=== PATIENT | male | born 1995 | race Two or more races ===

== ENCOUNTER 2024-10-10 07:36 | Inpatient (IN) | payer OTHER, SELFPAY ==
[~2024-10-10] VITALS: Ht 177.8 cm; Wt 92.4 kg
--- NOTE | 2024-10-10 07:58 | ED.PDOC ---
GI ASSESSMENT HPI Comments 29 year old male presents to the ED with chief complaint of abdominal pain. Patient reports that he has been experiencing LLQ abdominal pain with associated nausea since an hour ago. Patient relays that he has been on a recent 2 week course of antibiotics due to a sinus infection, but did not take a dose last night. Patient denies any dysuria, constipation, vomiting, diarrhea, fever, or chills. Chief Complaint: Abdominal Pain Time Seen by MD: 07:56 Reviewed Notes: Nurses Notes, Medications, Allergies Allergies: Coded Allergies: NO KNOWN ALLERGIES (Unverified , 10/10/24) Home Meds Active Scripts Pantoprazole Sodium Sesquihydr (Protonix) 40 Mg Tab, 40 MG PO DAILY for 5 Days, #5 TAB Prov:NAHOMI MARTÍNEZ MD 10/10/24 Information Source: Patient Mode of Arrival: Ambulatory Timing: Hours Duration: Since onset Prehospital treatment: None Quality: Sharp Vomitus: None Stool: Normal Severity: Moderate Recent: None Recent Hx of: None Pain Location: LLQ Modifying Factors: Nothing Associated sign and symptoms: Nausea, Abdominal Pain Past Medical History PAST MEDICAL HISTORY: Denies Surgical History: Denies all surgeries Family History Family History: Reviewed,noncontributory to illness Social History Smoker: Non-Smoker Alcohol: Denies ETOH Use Drugs: Denies Drug Use Lives In: Home Constitutional: denies: chills, diaphoresis, fatigue, fever, malaise, sweats, weakness, others EENTM: denies: blurred vision, double vision, ear bleeding, ear discharge, ear drainage, ear pain, ear ringing, eye pain, eye redness, hearing loss, mouth pain, mouth swelling, nasal discharge, nose bleeding, nose congestion, nose pain, photophobia, tearing, throat pain, throat swelling, voice changes, others Respiratory: denies: cough, hemoptysis, orthopnea, SOB at rest, shortness of breath, SOB with excertion, stridor, wheezing, others Cardiovascular: denies: chest pain, dizzy spells, diaphoresis, Dyspnea on exertion, edema, irregular heart beat, left arm pain, lightheadedness, palpitations, PND, syncope, others Gastrointestinal: reports: abdominal pain, nausea; denies: abdomen distended, blood streaked bowels, constipated, diarrhea, dysphagia, difficulty swallowing, hematemesis, melena, poor appetite, poor fluid intake, rectal bleeding, rectal pain, vomiting, others Genitourinary: denies: burning, dysuria, flank pain, frequency, hematuria, incontinence, penile discharge, penile sore, pain, testicle pain, testicle swelling, urgency, others Neurological: denies: dizziness, fainting, headache, left sided numbness, left sided weakness, numbness, paresthesia, pre-existing deficit, right sided numbnes s, right sided weakness, seizure, speech problems, tingling, tremors, weakness, others Musculoskeletal: denies: back pain, gout, joint pain, joint swelling, muscle pain, muscle stiffness, neck pain, others Integumetry: denies: bruises, change in color, change in hair/nails, dryness, laceration, lesions, lumps, rash, wounds, others Allergic/Immunocompromised: denies: Difficulty Healing, Frequent Infections, Hives, Itching, others Hematologic/Lymphatic: denies: anemia, blood clots, easy bleeding, easy bruising, swollen glands, others Endocrine: denies: excessive hunger, excessive sweating, excessive thirst, excessive urination, flushing, intolerance to cold, intolerance to heat, unexplained weight gain, unexplained weight loss, others Psychiatric: denies: anxiety, bipolar disorder, depression, hopeless, panic disorder, schizophrenia, sleepless, suicidal, others All Other Systems: Reviewed and Negative Physical Exam General Appearance: Moderate Distress, Normal HEENT: Normal ENT Inspection, PERRL/EOMI Neck: Full Range of Motion, Non-Tender, Normal, Normal Inspection Respiratory: Chest Non-Tender, Lungs Clear, No Accessory Muscle Use, No Re spiratory Distress, Normal Breath Sounds Cardiovascular: No Edema, No JVD, No Murmur, No Gallop, Normal Peripheral Pulses, Regular Rate/Rhythm Breast Exam: Deferred Gastrointestinal: No Organomegaly, Non Tender, No Pulsatile Mass, Normal Bowel Sounds, Soft Genitalia: Deferred Pelvic: Deferred Rectal: Deferred Extremities: No calf tenderness, Normal capillary refill, Normal inspection, Normal range of motion, Non-tender, No pedal edema Musculoskeletal : Apperance: Normal Neurologic: Alert, tool inspector II-XII nml as Tested, No Motor Deficits, Normal Affect, Normal Mood, No Sensory Deficits Cerebellar Function: Normal Reflexes: Normal Skin: Dry, Normal Color, Warm Peripheral Pulses: 3+ Radial (R), 3+ Radial (L) Lymphatic: No Adenopathy Was a procedure done? Was a procedure done?: No GI differential Dx Differential Diagnosis: Constipation, Diverticular disease, Esophagitis, Gastritis/PUD, Gastroenteritis X-Ray, Labs, Meds, VS Vital Signs Date Time Temp Pulse Resp B/P (MAP) Pulse Ox O2 Delivery O2 Flow Rate FiO2 10/10/24 12:46 98.7 79 16 126/76 (93) 97 98.7 10/10/24 10:04 98.3 71 18 119/69 (86) 98 98.3 10/10/24 07:43 97.3 74 20 138/87 (104) 98 Lab Test 10/10/24 09:41 Range/Units White Blood Count 12.4 H 4.4-10.8 10^3/uL Red Blood Count 5.10 4.5-5.90 10^6/uL Hemoglobin 14.7 13.5-17.5 g/dL Hematocrit 43.9 41.0-53.0 % Mean Corpuscular Volume 86.0 80.0-100.0 fL Mean Corpuscular Hemoglobin 28.8 28.0-32.0 pg Mean Corpuscular Hemoglobin Concent 33.5 32.0-36.0 g/dL Red Cell Distribution Width 13.2 11.8-14.3 % Platelet Count 269 140-450 10^3/uL Mean Platelet Volume 8.3 6.9-10.8 fL Neutrophils (%) (Auto) 81.8 H 37.0-80.0 % Lymphocytes (%) (Auto) 11.7 10.0-50.0 % Monocytes (%) (Auto) 6.0 0.0-12.0 % Eosinophils (%) (Auto) 0.4 0.0-7.0 % Basophils (%) (Auto) 0.1 0.0-2.0 % Neutrophils # (Auto) 10.2 H 1.6-8.6 10 ^3/uL Lymphocytes # (Auto) 1.5 0.4-5.4 10 ^3/uL Monocytes # (Auto) 0.7 0-1.3 10 ^3/uL Eosinophils # (Auto) 0 0-0.8 10 ^3/uL Basophils # (Auto) 0 0-0.2 10 ^3/uL Nucleated Red Blood Cells 0.0 % Sodium Level 139 136-145 mmol/L Potassium Level 4.4 3.5-5.1 mmol/L Chloride Level 105 98-107 mmol/L Carbon Dioxide Level 29 20-31 mmol/L Anion Gap 5 5-15 Blood Urea Nitrogen 15 9-23 mg/dL Creatinine 1.01 0.700-1.30 mg/dL Glomerular Filtration Rate Calc 105 >90 mL/min BUN/Creatinine Ratio 14.9 10.0-20.0 Serum Glucose 104 74-106 mg/dL Calcium Level 9.8 8.7-10.4 mg/dL Troponin I High Sensitivity < 3 L </=54 ng/L Triglycerides Level 140 < 150 mg/dL Cholesterol Level 167 < 200 mg/dL LDL Cholesterol 116 H < 100 mg/dL HDL Cholesterol 44 40-59 mg/dL Lipase 37 12-53 U/L Thyroid Stimulating Hormone (TSH) 2.07 0.55-4.78 uIU/mL Patient alert. Complaining of abdominal discomfort. Vitals stable. Answering all questions. Ambulating. Abdomen is soft nontender. Physical examination pristine. Jumping up and down without difficulty. Currently on antibiotics for possible sinusitis. Was given prescription of Protonix. Explained to the patient the side effects of antibiotics. Was told to follow up with his primary care physician. Was told to come back if there is any problem. Time of 1ST Reevaluation: 08:56 Reevaluation 1ST: Improved Patient Education/Counseling: Diagnosis, Treatment Family Education/Counseling: No Family Present Additional Information I reviewed the following notes from patient's past medical encounters: None The following tests were ordered, and results were reviewed by me: CBC, BMP, UA Additional Information was gathered from interviewing the following independent historians: None I reviewed and agreed with the following test results read by other providers: None I discussed treatment and results with medical personnel. Departure 1 Departure Time of Disposition: 08:01 Impression: Primary Impression: Gastritis Qualified Codes: K29.00 - Acute gastritis without bleeding Additional Impression: Non-specific colitis Disposition: ADMITTED INPATIENT Admit to: Med Surg Condition: Guarded e-Prescriptions Pantoprazole Sodium Sesquihydr (Protonix) 40 Mg Tab 40 MG PO DAILY for 5 Days, #5 TAB Prov: NAHOMI MARTÍNEZ MD 10/10/24 Critical Care Note Critical Care Time?: No Stability Stability form required: No Heart Score Heart Score: Heart Score Response (Comments) Value History N/A 0 EKG N/A 0 Age N/A 0 Risk Factors N/A 0 Troponin N/A 0 Total 0 I personally scribed for NAHOMI MARTÍNEZ MD ([email or web address]) on 10/10/24 at 07:58. Electronically submitted by Milo Springer [email or web address]). NAHOMI MARTÍNEZ MD Oct 10, 2024 07:58
[2024-10-10] MEDS ORDERED: PANT40TA2 PO (08:02)
[2024-10-10 10:12] LABS: Basophils # (auto) 0 10 ^3/uL (0-0.2); Basophils % (auto) 0.1 % (0.0-2.0); Eosinophils # (auto) 0 10 ^3/uL (0-0.8); Eosinophils % (auto) 0.4 % (0.0-7.0); Hematocrit 43.9 % (41.0-53.0); Hemoglobin 14.7 g/dL (13.5-17.5); Lymphocytes # (auto) 1.5 10 ^3/uL (0.4-5.4); Lymphocytes % (auto) 11.7 % (10.0-50.0); Mean Corpuscular Hemoglobin 28.8 pg (28.0-32.0); Mean Corpuscular Hgb Conc. 33.5 g/dL (32.0-36.0); Monocytes # (auto) 0.7 10 ^3/uL (0-1.3); Neutrophils # (auto) 10.2 10 ^3/uL (1.6-8.6); Neutrophils % (auto) 81.8 % (37.0-80.0); Platelet Count (auto) 269 10^3/uL (140-450); Red Cell Distribution Width 13.2 % (11.8-14.3); White Blood Cell 12.4 10^3/uL (4.4-10.8)
[2024-10-10 10:24] LABS: Chloride 105 mmol/L (98-107); Potassium 4.4 mmol/L (3.5-5.1); Sodium 139 mmol/L (136-145)
[2024-10-10 10:25] LABS: Anion Gap 5 (5-15); Calcium 9.8 mg/dL (8.7-10.4); Carbon Dioxide 29 mmol/L (20-31)
[2024-10-10 10:30] LABS: Blood Urea Nitrogen 15 mg/dL (9-23); Glucose 104 mg/dL (74-106)
[2024-10-10 10:38] LABS: BUN/Creatinine Ratio 14.9 (10.0-20.0)
[2024-10-10 10:53] LABS: Lipase 37 U/L (12-53)
--- NOTE | 2024-10-10 11:05 | DVH ---
CT ABDOMEN AND PELVIS WITHOUT CONTRAST CLINICAL HISTORY: enteritis TECHNIQUE: Multiple contiguous axial images of the abdomen and pelvis without intravenous contrast. The images were reformatted degenerate coronal and sagittal reconstructions. All CT scans at this medical facility are performed using dose modulation techniques as appropriate t o a performed exam including the following:Automated exposure control was utilized; adjustment of the MA and/or KV according to patient size; and use of iterative reconstruction technique. Radiation Dose Information: CT Dose: CTDI volume is 9.7 mGy. Dose-length product is 548 mGy*cm Comparison: None FINDINGS: Evaluation of the abdomen and pelvis is limited without intravenous contrast. The liver, gallbladder, pancreas, kidneys, adrenal glands, and spleen appear within normal limits. There is no gross evidence of abdominal lymphadenopathy. There is no free fluid or free air. The stomach grossly appears unremarkable. The small and large bowel loops demonstrate normal caliber . There are few scattered diverticula in the colon without evidence of acute diverticulitis. There i s a normal-appearing appendix seen in the right lower quadrant abdomen without associated inflammator y changes. The abdominal aorta and IVC appear within normal limits. The bladder appears unremarkable for the degree of distention. Pelvic organ appears within normal neff its. There is no gross evidence of a pelvic mass. There is no free fluid collection. Lung bases are clear. There is no acute osseous abnormality. IMPRESSION: 1. There is no acute process in the abdomen and pelvis. 2. Few scattered colonic diverticula. HS:Y
--- NOTE | 2024-10-10 12:47 | DVHHP2 ---
History of Present Illness Reason for Visit: Abdominal pain and palpitations History of Present Illness Nikhil Sawyer is a 29-year-old male with no pertinent past medical history who presents to the ED with nausea, abdominal pain x1 day and palpitations since Tuesday. Patient reports that he tried marijuana and immediately started developing palpitations. He states he abdominal pain is 6/10 intermittent and pressure-like. Patient also reports some head pressure. Patient denies any recent injury of trauma or falls. Patient reports that there are no triggering or alleviating factors. He also reports that he had a sinus infection recently as well and was given antibiotics. Patient denies any shortness of breath, vomiting, diarrhea, lightheadedness, fever, chills, and dizziness. Smoke: No ALCOHOL: none Drugs: Marijuana Lives: with Family Domestic Violence: Neg Review of Systems Constitutional: No: Fever, Chills, Sweats, Weakness, Malaise, Other Eyes: No: Pain, Vision change, Conjunctivae inflammation, Eyelid inflammation, Other, Redness ENT: No: Ear pain, Ear discharge, Nose pain, Nose discharge, Nose congestion, Mouth pain, Mouth swelling, Throat pain, Throat swelling, Other Respiratory: No: Cough, Dry, Shortness of breath, SOB with excertion, Wheezing, Hemoptysis, Pleuritic Pain, Sputum, Wheezing, Other Cardiovascular: Palpitations; No: Chest Pain, Orthopnea, Paroxysmal Noc. Dyspnea, Edema, Lt Headedness, Other Gastrointestinal: Nausea, Abdominal Pain; No: Vomiting, Diarrhea, Constipation, Melena, Hematochezia, Other Genitourinary: No Dysuria, No Frequency, No Incontinence, No Hematuria, No Retention, No Other Musculoskeletal: No: other, neck pain, shoulder pain, arm pain, back pain, hand pain, leg pain, foot pain Skin: No: Rash, Lesions, Jaundice, Bruising, Other Neurological: No: Weakness, Numbness, Incoordination, Change in speech, Confusion, Seizures, Other Allergies: Coded Allergies: NO KNOWN ALLERGIES (Unverified , 10/10/24) Exam Vital Signs Vital Signs Date Time Temp Pulse Resp B/P (MAP) Pulse Ox O2 Delivery O2 Flow Rate FiO2 10/10/24 10:04 98.3 71 18 119/69 (86) 98 98.3 General Appearance: Alert, Oriented X3, Cooperative, No acute distress HEENT: Atraumatic, PERRLA, EOMI, Mucous membr. moist/pink Respiratory: Clear to auscultation, Normal air movement Cardiovascular: Regular rate, Normal S1, Normal S2, No murmurs Abdominal: Normal bowel sounds, Soft, No masses Extremities: No clubbing, No cyanosis, No edema, Normal pulses, No tenderness/swelling Skin: No rashes, No breakdown, No significant lesion Neuro: Normal gait, Normal speech, Strength at 5/5 X4 ext, Normal tone, Sensation intact Psych/Mental Status: Mental status NL, Mood NL Labs/Xrays Labs Test 10/10/24 09:41 Range/Units White Blood Count 12.4 H 4.4-10.8 10^3/uL Red Blood Count 5.10 4.5-5.90 10^6/uL Hemoglobin 14.7 13.5-17.5 g/dL Hematocrit 43.9 41.0-53.0 % Mean Corpuscular Volume 86.0 80.0-100.0 fL Mean Corpuscular Hemoglobin 28.8 28.0-32.0 pg Mean Corpuscular Hemoglobin Concent 33.5 32.0-36.0 g/dL Red Cell Distribution Width 13.2 11.8-14.3 % Platelet Count 269 140-450 10^3/uL Mean Platelet Volume 8.3 6.9-10.8 fL Neutrophils (%) (Auto) 81.8 H 37.0-80.0 % Lymphocytes (%) (Auto) 11.7 10.0-50.0 % Monocytes (%) (Auto) 6.0 0.0-12.0 % Eosinophils (%) (Auto) 0.4 0.0-7.0 % Basophils (%) (Auto) 0.1 0.0-2.0 % Neutrophils # (Auto) 10.2 H 1.6-8.6 10 ^3/uL Lymphocytes # (Auto) 1.5 0.4-5.4 10 ^3/uL Monocytes # (Auto) 0.7 0-1.3 10 ^3/uL Eosinophils # (Auto) 0 0-0.8 10 ^3/uL Basophils # (Auto) 0 0-0.2 10 ^3/uL Nucleated Red Blood Cells 0.0 % Sodium Level 139 136-145 mmol/L Potassium Level 4.4 3.5-5.1 mmol/L Chloride Level 105 98-107 mmol/L Carbon Dioxide Level 29 20-31 mmol/L Anion Gap 5 5-15 Blood Urea Nitrogen 15 9-23 mg/dL Creatinine 1.01 0.700-1.30 mg/dL Glomerular Filtration Rate Calc 105 >90 mL/min BUN/Creatinine Ratio 14.9 10.0-20.0 Serum Glucose 104 74-106 mg/dL Calcium Level 9.8 8.7-10.4 mg/dL Lipase 37 12-53 U/L CT ABDOMEN AND PELVIS WITHOUT CONTRAST CLINICAL HISTORY: enteritis TECHNIQUE: Multiple contiguous axial images of the abdomen and pelvis without intravenous contrast. The images were reformatted degenerate coronal and sagittal reconstructions. All CT scans at this medical facility are performed using dose modulation techniques as appropriate to a performed exam including the following:Automated exposure control was utilized; adjustment of the MA and/or KV according to patient size; and use of iterative reconstruction technique. Radiation Dose Information: CT Dose: CTDI volume is 9.7 mGy. Dose-length product is 548 mGy*cm Comparison: None FINDINGS: Evaluation of the abdomen and pelvis is limited without intravenous contrast. The liver, gallbladder, pancreas, kidneys, adrenal glands, and spleen appear within normal limits. There is no gross evidence of abdominal lymphadenopathy. There is no free fluid or free air. The stomach grossly appears unremarkable. The small and large bowel loops demonstrate normal caliber. There are few scattered diverticula in the colon without evidence of acute diverticulitis. There is a normal-appearing appendix seen in the right lower quadrant abdomen without associated inflammatory changes. The abdominal aorta and IVC appear within normal limits. The bladder appears unremarkable for the degree of distention. Pelvic organ appears within normal limits. There is no gross evidence of a pelvic mass. There is no free fluid collection. Lung bases are clear. There is no acute osseous abnormality. IMPRESSION: 1. There is no acute process in the abdomen and pelvis. 2. Few scattered colonic diverticula. Assessment/Plan Assessment/Plan Assessment/Plan: Palpitations Leukocytosis CT abdomen and pelvis Lipase EKG Troponin UDS UA His chest x-ray Influenza swab COVID swab Protonix Aspirin Statin VJ TSH Labs A.m. labs Lipid panel IV antibiotics-ceftriaxone Substance abuse Counseled patient on cessation of substance abuse FEN/PPX Diet Hep-Lock DVT ppx - not indicated patient ambulating PUD prophylaxis-Protonix, continue home medication Discussed plan of care with patient and nurse Home medications reconciled Admit to tele Plan discussed with: Patient My Orders Orders - ENRIQUETA BROWN Procedure Category Date Status Time Electrocardigram EKG 10/10/24 Transmitted 12:24 Troponin-I Hs LAB 10/10/24 Transmitted 12:24 Troponin-I Hs LAB 10/10/24 Transmitted 13:24 Troponin-I Hs LAB 10/10/24 Transmitted 15:24 Drug Screen LAB 10/10/24 Transmitted 12:24 Urine Dip ED NURSING 10/10/24 Transmitted Chest Xray 1 View XY 10/10/24 Transmitted 12:24 Covid19 Antigen [facility] 10/10/24 Transmitted Rapid Influenza A&B LAB 10/10/24 Transmitted 12:24 Pantoprazole Tablet PHA 10/11/24 Transmitted (Protonix Tablet) 10:00 Date of Service: Oct 10, 2024 Billing Provider: ENRIQUETA BROWN Common Visit Codes: [id number] INP/OBS CARE (HIGH) ENRIQUETA BROWN Oct 10, 2024 12:47
[2024-10-10] MEDS ORDERED: MORPHINE SULFATE 4 MG/ML SYR/VIAL IV PRN (13:00)
[2024-10-10] MEDS ORDERED: MORPHINE SULFATE INJ 2 MG/ml SYRG IV PRN (13:00)
[2024-10-10] MEDS ORDERED: ONDANSETRON HCL 4 MG/2 ML VIAL IV PRN (13:00)
[2024-10-10] MEDS ORDERED: NITROGLYCERIN 0.4 MG SL TAB SL PRN ×2 (13:00)
--- NOTE | 2024-10-10 13:00 | DVH ---
EXAM: XY CHEST XRAY 1 VIEW Indication: palpitations Technique: Single frontal view of the chest was obtained Comparison: None FINDINGS: Lines and Tubes: None Lungs: No focal consolidation. Pleura: No effusion. No pneumothorax. Cardiomediastinal contours: Unremarkable Bones: No acute osseous abnormality. IMPRESSION: No acute cardiopulmonary disease.
[2024-10-10 13:38] LABS: Triglycerides 140 mg/dL (< 150)
[2024-10-10 13:40] LABS: Cholesterol 167 mg/dL (< 200); HDL Cholesterol 44 mg/dL (40-59); LDL Cholesterol 116 mg/dL (< 100)
[2024-10-10 13:57] VITALS: PULSE 77; RESP 20; O2SAT 96
[2024-10-10] MEDS: cefTRIAXone 1GM/50ML D5W 50 ML IV ONE (14:25)
[2024-10-10 18:41] LABS: COVID19 ANTIGEN SOFIA FIA NEGATIVE (NEGATIVE); Rapid Influenza A Negative (Negative)
[2024-10-10 18:42] LABS: Rapid Influenza B Positive (Negative)
[2024-10-10] MEDS: ACETAMINOPHEN 325 MG TAB PO PRN (22:26)
[2024-10-10] MEDS: ATORVASTATIN 20 MG TAB PO SCH (22:26)
[2024-10-11 02:02] LABS: Amphetamine Screen, Urine Neg (NEGATIVE); Barbiturate Scree,Urine Neg (NEGATIVE); Benzodiazephine Screen, Urine Neg (NEGATIVE); Cannabinoid Screen, Urine Neg (NEGATIVE); Cocaine Screen, Urine Neg (NEGATIVE); Opiate Scree,Urine Neg (NEGATIVE); Phencyclidine Screen, Urine Neg (NEGATIVE)
[2024-10-11 06:03] LABS: Basophils # (auto) 0 10 ^3/uL (0-0.2); Basophils % (auto) 0.2 % (0.0-2.0); Eosinophils # (auto) 0.1 10 ^3/uL (0-0.8); Eosinophils % (auto) 1.9 % (0.0-7.0); Hematocrit 42.4 % (41.0-53.0); Hemoglobin 14.6 g/dL (13.5-17.5); Lymphocytes # (auto) 2.1 10 ^3/uL (0.4-5.4); Lymphocytes % (auto) 27.3 % (10.0-50.0); Mean Corpuscular Hemoglobin 29.5 pg (28.0-32.0); Mean Corpuscular Hgb Conc. 34.5 g/dL (32.0-36.0); Mean Corpuscular Volume 85.5 fL (80.0-100.0); Monocytes # (auto) 0.7 10 ^3/uL (0-1.3); Monocytes % (auto) 9.4 % (0.0-12.0); Neutrophils # (auto) 4.7 10 ^3/uL (1.6-8.6); Neutrophils % (auto) 61.2 % (37.0-80.0); Nucleated Red Blood Cells % 0.1 %; Platelet Count (auto) 244 10^3/uL (140-450); Red Blood Cells 4.95 10^6/uL (4.5-5.90); Red Cell Distribution Width 13.4 % (11.8-14.3); White Blood Cell 7.7 10^3/uL (4.4-10.8)
[2024-10-11 06:43] LABS: Albumin 4.5 g/dL (3.2-4.8); Anion Gap 7 (5-15); BUN/Creatinine Ratio 12.1 (10.0-20.0); Blood Urea Nitrogen 11 mg/dL (9-23); Calcium 9.9 mg/dL (8.7-10.4); Carbon Dioxide 27 mmol/L (20-31); Chloride 103 mmol/L (98-107); Glucose 98 mg/dL (74-106); Potassium 3.9 mmol/L (3.5-5.1); Sodium 137 mmol/L (136-145)
[2024-10-11 06:44] LABS: Bilirubin, Total 1.1 mg/dL (0.2-1.0); Total Protein 7.3 g/dL (5.7-8.2)
[2024-10-11 06:46] LABS: Alanine Aminotransferase 106 U/L (7-40); Alkaline Phosphatase 120 U/L (46-116); Aspartate Aminotransferase 43 U/L (13-40)
[2024-10-11 07:09] VITALS: RESP 16; O2SAT 99
[2024-10-11] MEDS: PANTOPRAZOLE 40 MG TAB PO SCH (10:34)
[2024-10-11 10:35] VITALS: BP 126/73; TEMP 98.2
[2024-10-11] MEDS: cefTRIAXone 1GM/50ML D5W 50 ML IV SCH (10:35)
[2024-10-11] MEDS: ASPirin 81 mg TAB PO SCH (10:35)
[2024-10-11 10:37] VITALS: PULSE 77; RESP 20; O2SAT 96
--- NOTE | 2024-10-11 13:46 | DVHDS2 ---
Discharge Summary Date of Admission Oct 10, 2024 at 12:46 Date of Discharge: Oct 11, 2024 Labs/Diagnostic Data: Laboratory Results Test 10/11/24 05:30 10/10/24 22:38 10/10/24 17:56 10/10/24 15:21 White Blood Count 7.7 10^3/uL (4.4-10.8) Red Blood Count 4.95 10^6/uL (4.5-5.90) Hemoglobin 14.6 g/dL (13.5-17.5) Hematocrit 42.4 % (41.0-53.0) Mean Corpuscular Volume 85.5 fL (80.0-100.0) Mean Corpuscular Hemoglobin 29.5 pg (28.0-32.0) Mean Corpuscular Hemoglobin Concent 34.5 g/dL (32.0-36.0) Red Cell Distribution Width 13.4 % (11.8-14.3) Platelet Count 244 10^3/uL (140-450) Mean Platelet Volume 8.3 fL (6.9-10.8) Neutrophils (%) (Auto) 61.2 % (37.0-80.0) Lymphocytes (%) (Auto) 27.3 % (10.0-50.0) Monocytes (%) (Auto) 9.4 % (0.0-12.0) Eosinophils (%) (Auto) 1.9 % (0.0-7.0) Basophils (%) (Auto) 0.2 % (0.0-2.0) Neutrophils # (Auto) 4.7 10 ^3/uL (1.6-8.6) Lymphocytes # (Auto) 2.1 10 ^3/uL (0.4-5.4) Monocytes # (Auto) 0.7 10 ^3/uL (0-1.3) Eosinophils # (Auto) 0.1 10 ^3/uL (0-0.8) Basophils # (Auto) 0 10 ^3/uL (0-0.2) Nucleated Red Blood Cells 0.1 % Sodium Level 137 mmol/L (136-145) Potassium Level 3.9 mmol/L (3.5-5.1) Chloride Level 103 mmol/L (98-107) Carbon Dioxide Level 27 mmol/L (20-31) Anion Gap 7 (5-15) Blood Urea Nitrogen 11 mg/dL (9-23) Creatinine 0.91 mg/dL (0.700-1.30) Glomerular Filtration Rate Calc 118 mL/min (>90) BUN/Creatinine Ratio 12.1 (10.0-20.0) Serum Glucose 98 mg/dL (74-106) Calcium Level 9.9 mg/dL (8.7-10.4) Total Bilirubin 1.1 mg/dL (0.2-1.0) Aspartate Amino Transferase (AST) 43 U/L (13-40) Alanine Aminotransferase (ALT) 106 U/L (7-40) Alkaline Phosphatase 120 U/L (46-116) Total Protein 7.3 g/dL (5.7-8.2) Albumin 4.5 g/dL (3.2-4.8) Urine Opiates Screen Neg (NEGATIVE) Urine Fentanyl Screen Neg (NEGATIVE) Urine Barbiturates Screen Neg (NEGATIVE) Urine Phencyclidine Screen Neg (NEGATIVE) Urine Amphetamines Screen Neg (NEGATIVE) Urine Benzodiazepines Screen Neg (NEGATIVE) Urine Cocaine Screen Neg (NEGATIVE) Urine Cannabinoids Screen Neg (NEGATIVE) Influenza Type A Antigen Negative (Negative) Influenza Type B Antigen Positive (Negative) SARS-CoV-2 Antigen (Rapid) Negative (NEGATIVE) Troponin I High Sensitivity < 3 ng/L (</=54) Test 10/10/24 09:41 Triglycerides Level 140 mg/dL (< 150) Cholesterol Level 167 mg/dL (< 200) LDL Cholesterol 116 mg/dL (< 100) HDL Cholesterol 44 mg/dL (40-59) Lipase 37 U/L (12-53) Thyroid Stimulating Hormone (TSH) 2.07 uIU/mL (0.55-4.78) Other Laboratory Tests 10/11/24 05:30 Brief Hx & Hospital Course: Patient left the unit AMA prior to be seen by me. Per chart review, 29 M with cannabis used admitted for palpitation and abdominal pain after using marijuana. Condition at Discharge: Undetermined Final Diagnosis/Problems List palpitation abdominal discomfort likely all related to marijuana use prior Discharge Disposition: AMA 25 Discharge Statement: "Patient was advised to return to the ER or call 911 if any headaches, dizziness, shortness of breath, chest pain, abdominal pain, bleeding, fevers, or worsening of medical condition. Patient was counseled about treatment plan, medications, possible side effects, patientverbalized understanding. All questions were answered to the best of my ability. This discharge took greater then 30 minutes in planning, reviewing documentation, counseling the patient, and discussing with other team members." ASSESSMENT ASSESSMENT Assessment palpitation abdominal discomfort likely all related to marijuana use prior Date of Service: Oct 11, 2024 Billing Provider: PRESTON SCHWARZ MD Common Visit Codes: 47420-DCM/OBS DISCH DAY <30MIN PRESTON SCHWARZ MD Oct 11, 2024 13:46
== END 2024-10-11 10:49 | disposition left against medical advice (07) | DRG 392 ==
LOC: ER 07:36 → TELE 11:00
PROVIDERS: ATTEND Student in an Organized Health Care Education/Training Program
DX: K29.00 Acute gastritis without bleeding (principal); J10.1 Influenza due to other identified influenza virus with other respiratory manifestations; Z53.29 Procedure and treatment not carried out because of patient's decision for other reasons; Z20.822 Contact with and (suspected) exposure to COVID-19; T40.715A Adverse effect of cannabis, initial encounter; Z79.899 Other long term (current) drug therapy; Y92.89 Other specified places as the place of occurrence of the external cause
CPT/HCPCS: 36415; 71045; 74176; 80048; 80053; 80061; 80307; 83690; 84443; 84484; 85025; 87426; 87804; 96365; G0378